=== PATIENT | female | born 1985 | race Caucasian/White ===

== ENCOUNTER → 2020-11-28 | Outpatient (CLI) | payer OTHER ==
--- NOTE | 2020-11-28 15:52 | RAD ---
XR ELBOW_RIGHT 11/28/2020 Reason: RIGHT ELBOW PAIN Comparison: None Technique: 2 views of the right elbow Findings: There is no acute fracture or dislocation. No elbow joint effusion. Soft tissues are normal. Impression: No acute osseous abnormality. Electronically signed by: Dane Pastrana (11/28/2020 3:49 PM) [id number]
== END ==
LOC: RAD 09:30
PROVIDERS: ATTEND Family Medicine
DX: M25.521 Pain in right elbow (principal)
CPT/HCPCS: 73070

== ENCOUNTER 2020-12-28 10:13 | Emergency (ER) | payer OTHER ==
[~2020-12-28] VITALS: Ht 162.6 cm; Wt 80.0 kg
[2020-12-28 10:13] VITALS: BP 113/71
[2020-12-28] MEDS ORDERED: IV NORMAL SALINE 1,000ML 1,000 ML IV ONE (10:30)
[2020-12-28] MEDS ORDERED: ONDANSETRON PF 4 MG/2 ML VIAL. IVP ONE (10:30)
[2020-12-28] MEDS ORDERED: PANTOPRAZOLE IV 40 MG VIAL. ONE (10:34)
--- NOTE | 2020-12-28 10:34 | PHYS DOC ---
General Adult EDM: Chief Complaint: ABDOMINAL PAIN HPI: HPI: Patient is a 35-year-old female being seen in the ER for right upper quadrant and epigastric pain that started this morning at 3 AM. Patient is reporting nausea, vomiting, diarrhea. She describes the pain as a sharp pain. She rates it 9 out of 10. No treatment prior to arrival. No radiation of pain. Patient states that she ate barbecue last night. Patient has no medical problems or surgical history. Patient's vital signs are stable at this time. (SHIVAM KING APRN) Review of Systems: Review of Systems: 14 body systems of the review of systems have been reviewed. See HPI for pertinent positive and negative responses, otherwise all other systems are negative, nonpertinent or noncontributory (SHIVAM KING APRN) Physical Exam: PE: Constitutional: Well developed, well nourished, no acute distress, non-toxic appearance. [] HENT: Normocephalic, atraumatic, bilateral external ears normal, oropharynx moist, no oral exudates, nose normal. [] Eyes: PERRL, EOMI, conjunctiva normal, no discharge. [] Neck: Normal range of motion, no stridor Cardiovascular:Heart rate regular rhythm, no murmur [] Lungs & Thorax: Bilateral breath sounds clear to auscultation [] Abdomen: Bowel sounds normal, soft, no tenderness, no masses, no pulsatile masses. [] Skin: Warm, dry, no erythema, no rash. [] Back: Normal range of motion Extremities: No tenderness, no cyanosis, no clubbing, ROM intact, no edema. [] Neurologic: Alert and oriented X 3, normal motor function, normal sensory function, no focal deficits noted. [] Psychologic: Affect normal, judgement normal, mood normal. [] (SHIVAM KING APRN) Current Patient Data: Labs: PROCEDURE: CT ABD PELV W/ IV CONTRST ONLY EXAMINATION: CT ABDOMEN+PELVIS W CLINICAL HISTORY: RUQ/EPIGASTRIC PAIN TECHNIQUE: CT of the abdomen and pelvis was performed using standard technique, scanning from just above the dome of the diaphragm to the symphysis pubis following administration of intravenous contrast. CT Dose Reduction Employed: One or more of the following individualized dose reduction techniques were utilized for this examination: 1. Automated exposure control 2. Adjustment of the mA and/or kV according to patient size 3. Use of iterative reconstruction technique. COMPARISON: None FINDINGS: Visualized heart and lungs unremarkable. Liver, gallbladder, pancreas, spleen, adrenal glands, and kidneys unremarkable. Minimally filled urinary bladder suboptimally evaluated. Retroflexed uterus. Left ovarian cyst with enhancing crenulated sterling and mild free fluid in the pelvis, suggestive of a ruptured cyst. Right ovary unremarkable. Wall thickening and mild surrounding mesenteric edema suspected in the mid to distal ileum, suggestive of enteritis. Mild stool throughout the colon. Normal appendix. No abdominal aortic or iliac artery aneurysm. No evidence of acute osseous abnormality. IMPRESSION: Small bowel wall thickening and surrounding mesenteric edema, compatible with mild enteritis. Findings suggestive of a ruptured left ovarian cyst as described. Electronically signed by: Morales Chun DO (12/28/2020 11:15 AM) [facility] DICTATED AND SIGNED BY: MORALES CHUN DO DATE: 12/28/20 1105 CC: RAUOL BARRIENTOS MD; SHIVAM KING GUIDE DELEGATE ~MTH0 0 Laboratory Tests Test 12/28/20 10:28 12/28/20 10:44 White Blood Count 9.6 x10^3/uL Red Blood Count 4.35 x10^6/uL Hemoglobin 13.7 g/dL Hematocrit 40.7 % Mean Corpuscular Volume 94 fL Mean Corpuscular Hemoglobin 32 pg Mean Corpuscular Hemoglobin Concent 34 g/dL Red Cell Distribution Width 12.9 % Platelet Count 240 x10^3/uL Neutrophils (%) (Auto) 83 % Lymphocytes (%) (Auto) 10 % Monocytes (%) (Auto) 6 % Eosinophils (%) (Auto) 1 % Basophils (%) (Auto) 1 % Neutrophils # (Auto) 8.0 x10^3uL Lymphocytes # (Auto) 0.9 x10^3/uL Monocytes # (Auto) 0.5 x10^3/uL Eosinophils # (Auto) 0.1 x10^3/uL Basophils # (Auto) 0.1 x10^3/uL Urine Collection Type Unknown Urine Color Yellow Urine Clarity Clear Urine pH 8.5 Urine Specific [place] 1.020 Urine Protein Neg Urine Glucose (UA) Neg mg/dL Urine Ketones (Stick) 40 mg/dL Urine Blood Trace Urine Nitrite Neg Urine Bilirubin Neg Urine Urobilinogen Dipstick 0.2 mg/dL Urine Leukocyte Esterase Neg Urine RBC 0 /HPF Urine WBC 0 /HPF Urine Squamous Epithelial Cells Occ /LPF Urine Bacteria 0 /HPF Sodium Level 143 mmol/L Potassium Level 4.1 mmol/L Chloride Level 107 mmol/L Carbon Dioxide Level 24 mmol/L Anion Gap 12 Blood Urea Nitrogen 16 mg/dL Creatinine 0.7 mg/dL Estimated GFR (Cockcroft-Gault) 95.8 BUN/Creatinine Ratio 23 Glucose Level 98 mg/dL Calcium Level 9.2 mg/dL Total Bilirubin 0.4 mg/dL Aspartate Amino Transf (AST/SGOT) 14 U/L Alanine Aminotransferase (ALT/SGPT) 23 U/L Alkaline Phosphatase 56 U/L Total Protein 7.0 g/dL Albumin 3.9 g/dL Albumin/Globulin Ratio 1.3 Lipase 59 U/L Bedside Urine HCG, Qualitative hcg negative Current Medications Medications (Trade) Dose Ordered Sig/Ximena Route PRN Reason Start Time Stop Time Status Last Admin Dose Admin Sodium Chloride 1,000 ml @ 1,000 mls/hr 1X ONCE IV 12/28/20 10:30 12/28/20 11:29 12/28/20 10:40 Ondansetron HCl (Zofran) 4 mg 1X ONCE IVP 12/28/20 10:30 12/28/20 10:41 DC 12/28/20 10:41 Fentanyl Citrate (Fentanyl 2ml Vial) 50 mcg 1X ONCE IVP 12/28/20 10:30 12/28/20 10:41 DC 12/28/20 10:41 Famotidine (Pepcid Vial) 20 mg 1X ONCE IVP 12/28/20 10:45 12/28/20 10:46 DC 12/28/20 10:41 Pantoprazole Sodium (Protonix Vial) 40 mg STK-MED ONCE .ROUTE 12/28/20 10:34 12/28/20 10:34 DC Iohexol (Omnipaque 300 Mg/ml) 75 ml 1X ONCE IV 12/28/20 10:45 12/28/20 10:46 DC 12/28/20 10:48 Pantoprazole Sodium (Protonix Vial) 40 mg 1X ONCE IVP 12/28/20 11:00 12/28/20 11:01 DC (SHIVAM KING APRN) EKG: EKG: EKG performed by ER staff at 1028 shows sinus rhythm, no STEMI read by Dr. Mccoy at 1034. [] (SHIVAM KING APRN) Radiology/Procedures: Radiology/Procedures: [] (SHIVAM KING APRN) Heart Score: C/O Chest Pain: No Risk Factors: Risk Factors: DM, Current or recent (<one month) smoker, HTN, HLP, family history of CAD, obesity. Risk Scores: Score 0 - 3: 2.5% MACE over next 6 weeks - Discharge Home Score 4 - 6: 20.3% MACE over next 6 weeks - Admit for Clinical Observation Score 7 - 10: 72.7% MACE over next 6 weeks - Early Invasive Strategies (SHIVAM KING APRN) Course & Med Decision Making: Course & Med Decision Making Pertinent Labs and Imaging studies reviewed. (See chart for details) [] Patient is a 35-year-old female being seen in the ER for right upper quadrant and epigastric pain that started this morning with nausea, vomiting and diarrhea. Work-up in the ER consisted of blood work, urinalysis and CT scan of abdomen pelvis. Patient treated with IV fluids, nausea medication and pain medication. Work-up in the ER was unremarkable. Patient CT scan of her abdomen shows enteritis. This is likely a viral gastroenteritis. I advised her to stick to a clear liquid diet followed by bland diet. Patient discharged home with nausea medication. Patient advised to follow-up with primary care provider. I discussed with patient all findings and diagnostic testing as well as the need to follow-up with PCP for further evaluation and treatment or return to the ER if any new or worsening symptoms. Strict return precautions were also discussed at length. Patient voiced understanding and agreement with the plan. Patient is hemodynamically stable at the time of disposition. (SHIVAM KING APRN) Course & Med Decision Making I was the Attending physician on the above date of service of this patient. This patient was evaluated, examined, treated, and dispositioned from the emergency department by the mid-level practitioner. Although I was working at the time , no assistance was requested. Electronically signed, Rickie Mccoy DO (RICKIE MCCOY DO) Maura Disclaimer: Maura Disclaimer: This electronic medical record was generated, in whole or in part, using a voice recognition dictation system. (SHIVAM KING APRN) Departure Departure: Impression: Primary Impression: Enteritis Disposition: HOME / SELF CARE / HOMELESS Condition: GOOD Referrals: RAOUL BARRIENTOS MD (PCP) Patient Instructions: Viral Gastroenteritis Additional Instructions: You were seen in the ER today for abdominal pain with nausea/vomiting and diarrhea. Your blood work was unremarkable. Your CT scan of your abdomen shows an enteritis. This is likely a viral gastroenteritis. For your diarrhea, you can take Imodium. You are being discharged home with nausea medication that you can take as directed. Please stick to a clear liquid diet for the next 24 hours. This consists of Gatorade's, Jell-O, soups. Following 24 hours stick to a bland diet such as bananas, rice, applesauce and toast. Please avoid any spicy, greasy or fatty foods. Follow-up with your primary care provider tomorrow regarding your ER visit. Ensure that you are staying hydrated. If you develop worsening of your abdominal pain, blood in your stools or vomit, intractable nausea or vomiting, high fevers refractory to treatment please return to the ER. Scripts Ondansetron (ONDANSETRON ODT) 4 Mg Tab.rapdis 1 TAB PO PRN Q6-8HRS for nausea for 7 Days, #28 TAB 0 Refills Prov: SHIVAM KING APRN 12/28/20 SHIVAM KING APRN Dec 28, 2020 10:34 RICKIE MCCOY DO Dec 29, 2020 06:40
[2020-12-28] MEDS ORDERED: FAMOTIDINE 20 MG/2 ML VIAL IVP ONE (10:45)
[2020-12-28] MEDS ORDERED: IOHEXOL 300 MG/ML 75 ML VIAL. IV ONE (10:45)
[2020-12-28 10:51] LABS: BASO # 0.1 x10^3/uL (0.0-0.2); BASO % 1 % (0-3); EOS # 0.1 x10^3/uL (0.0-0.7); EOS % 1 % (0-3); HEMATOCRIT 40.7 % (36.0-47.0); HEMOGLOBIN 13.7 g/dL (12.0-15.5); LYMPH # 0.9 x10^3/uL (1.0-4.8); LYMPH % 10 % (24-48); MEAN CORPUSCULAR HEMOGLOBIN 32 pg (25-35); MEAN CORPUSCULAR HGB CONC 34 g/dL (31-37); MEAN CORPUSCULAR VOLUME 94 fL (79-100); MONO # 0.5 x10^3/uL (0.0-1.1); MONO % 6 % (0-9); NEUT % 83 % (31-73); PLATELET COUNT 240 x10^3/uL (140-400); RED BLOOD COUNT 4.35 x10^6/uL (3.50-5.40); RED CELL DISTRIBUTION WIDTH 12.9 % (11.5-14.5); WHITE BLOOD COUNT 9.6 x10^3/uL (4.0-11.0)
[2020-12-28 10:59] LABS: CALCIUM 9.2 mg/dL (8.5-10.1); CREATININE 0.7 mg/dL (0.6-1.0); GFR 95.8; POTASSIUM 4.1 mmol/L (3.5-5.1)
[2020-12-28] MEDS ORDERED: PANTOPRAZOLE IV 40 MG VIAL. IVP ONE (11:00)
[2020-12-28 11:04] LABS: ALBUMIN 3.9 g/dL (3.4-5.0); ALBUMIN/GLOBULIN RATIO 1.3 (1.0-1.7); TOTAL BILIRUBIN 0.4 mg/dL (0.2-1.0)
[2020-12-28 11:08] LABS: BACTERIA,URINE 0 /HPF (0-FEW); BILIRUBIN,URINE NEG (NEG); CLARITY,URINE CLEAR; COLOR,URINE YELLOW; GLUCOSE,URINE NEG (NEG); NITRITE,URINE NEG (NEG); RBC,URINE 0 /HPF (0-2); SQUAMOUS EPITHELIAL CELL,UR OCC /LPF; UROBILINOGEN,URINE 0.2 mg/dL (0.2 mg/dL); WBC,URINE 0 /HPF (0-4)
--- NOTE | 2020-12-28 11:17 | RAD ---
EXAMINATION: CT ABDOMEN+PELVIS W CLINICAL HISTORY: RUQ/EPIGASTRIC PAIN TECHNIQUE: CT of the abdomen and pelvis was performed using standard technique, scanning from just ab ove the dome of the diaphragm to the symphysis pubis following administration of intravenous contrast . CT Dose Reduction Employed: One or more of the following individualized dose reduction techniques wer e utilized for this examination: 1. Automated exposure control 2. Adjustment of the mA and/or kV ac cording to patient size 3. Use of iterative reconstruction technique. COMPARISON: None FINDINGS: Visualized heart and lungs unremarkable. Liver, gallbladder, pancreas, spleen, adrenal glands, and kidneys unremarkable. Minimally filled urinary bladder suboptimally evaluated. Retroflexed uterus. Left ovarian cyst with e nhancing crenulated sterling and mild free fluid in the pelvis, suggestive of a ruptured cyst. Right ova ry unremarkable. Wall thickening and mild surrounding mesenteric edema suspected in the mid to distal ileum, suggestiv e of enteritis. Mild stool throughout the colon. Normal appendix. No abdominal aortic or iliac artery aneurysm. No evidence of acute osseous abnormality. IMPRESSION: Small bowel wall thickening and surrounding mesenteric edema, compatible with mild enteritis. Findings suggestive of a ruptured left ovarian cyst as described. Electronically signed by: Morales Simon DO (12/28/2020 11:15 AM) [facility]
[2020-12-28] MEDS ORDERED: ONDA4TAB12 PO (11:31)
--- NOTE | 2020-12-28 16:04 | EKG ---
[address] [address] Test Date: 2020-12-28 Test Time: 10:28:38 Pat Name: LUCIANO LEIGH Department: Room: Gender: F Painter Sign Maintenance: AYAZ : 1985 Requested By: SHIVAM KING Order Number: [id number] Reading MD: Measurements Intervals [place] Rate: 80 P: 26 W[place]: 138 QRS: 45 QRSD: 78 T: 39 QT: 368 QTc: 428 Interpretive Statements SINUS RHYTHM NORMAL ECG RI6.02 No previous ECG available for comparison
== END 2020-12-28 12:05 | disposition home or self-care (01) ==
LOC: ER 10:13
DX: K52.9 Noninfective gastroenteritis and colitis, unspecified (principal)
CPT/HCPCS: 36415; 74177; 80053; 81001; 81025; 83690; 85025; 93005; 96361; 96374; 96375; 99285; C9113; J2405; J3010; J3490; J7030; Q9967